=== PATIENT | female | born 1975 | race Caucasian/White ===

== ENCOUNTER → 2017-07-05 | Outpatient (CLI) | payer OTHER ==
--- NOTE | 2017-07-06 11:10 | RADIOLOGY IMAGING REPORT ---
FACILITY: [facility] PATIENT NAME: TRACI KUMAR : [id number] MR: [id number] V: [id number] EXAM DATE: ORDERING PHYSICIAN: INDIRA WANG TECHNOLOGIST: Leda Mcconnell PROCEDURE:BILATERAL DIGITAL SCREENING MAMMOGRAM WITH CAD ASSISTED INTERPRETATION & 3D TOMOSYNTHESIS COMPARISON:Prior mammograms dated 02/20/16, 02/10/16, 01/22/15 INDICATIONS:SCREENING FINDINGS: Moderately heterogeneous fibroglandular tissue is seen throughout the breasts. The parenchymal pattern has remained stable allowing for difference in mammographic technique & patient positioning. There is no evidence of malignant appearing mass, malignant appearing calcification or other secondary sign of malignancy in either breast. DIAGNOSTIC CATEGORY 2--BENIGN FINDING. RECOMMENDATIONS: ROUTINE MAMMOGRAM AND CLINICAL EVALUATION. IMPRESSION: BIRADS 2: Benign finding. No significant abnormality is seen. Dictated by: Monika Dean M.D. on 07/05/2017 at 17:07 Transcribed by: MYNOR on 07/06/2017 at 8:26 Approved by: Monika Dean M.D. on 07/06/2017 at 11:08 [facility]
== END ==
LOC: MAMO 12:57
PROVIDERS: ATTEND Physician Assistant
DX: Z12.31 Encounter for screening mammogram for malignant neoplasm of breast (principal)
CPT/HCPCS: 77063; 77067

== ENCOUNTER → 2018-11-01 | Outpatient (CLI) | payer OTHER ==
--- NOTE | 2018-11-02 09:20 | RADIOLOGY IMAGING REPORT ---
FACILITY: [facility] [place] PATIENT NAME: TRACI KUMAR : [id number] MR: [id number] V: [id number] EXAM DATE: [id number] ORDERING PHYSICIAN: INDIRA WANG TECHNOLOGIST: Lesli Arndt PROCEDURE: BILATERAL DIGITAL SCREENING MAMMOGRAM WITH CAD ASSISTED INTERPRETATION & 3D TOMOSYNTHESIS. REASON FOR STUDY: Screening. FAMILY HISTORY OF BREAST CANCER: None. BREAST PROCEDURES/TREATMENTS: None. COMPARISON: 07/05/17, 02/10/16, 01/22/15. VIEWS OBTAINED: Bilateral 2D & 3D full field CC & MLO projections. BREAST DENSITY: The breasts are heterogeneously dense which can obscure small masses. MAMMOGRAM FINDINGS: The parenchymal pattern has remained stable allowing for difference in mammographic technique & patient positioning. IMPRESSION: BIRADS 1: Negative. DIAGNOSTIC CATEGORY 1--NEGATIVE. RECOMMENDATIONS: ROUTINE MAMMOGRAM AND CLINICAL EVALUATION. Dictated by: Monika Dean M.D. on 11/01/2018 at 17:02 Transcribed by: CHLOÉ on 11/02/2018 at 7:52 Approved by: Monika Dean M.D. on 11/02/2018 at 9:16 [facility]
== END ==
LOC: MAMO 00:36
PROVIDERS: ATTEND Physician Assistant
DX: Z12.31 Encounter for screening mammogram for malignant neoplasm of breast (principal)
CPT/HCPCS: 77063; 77067